=== PATIENT | male | born 1970 | race Caucasian/White ===

== ENCOUNTER 2021-01-24 10:05 | Day surgery (SDC) | payer BC ==
[2021-01-19 15:50] LABS: BASOPHILS # (AUTO) 0.1 X10'3 (0-0.2); BASOPHILS % (AUTO) 0.7 % (0-1); EOSINOPHILS # (AUTO) 0.2 X10'3 (0-0.9); EOSINOPHILS % (AUTO) 2.8 % (0-6); HEMATOCRIT 45.9 % (42.0-52.0); HEMOGLOBIN 15.9 g/dl (14.0-17.9); LYMPHOCYTES # (AUTO) 2.5 X10'3 (1.1-4.8); LYMPHOCYTES % (AUTO) 31.5 % (21-51); MEAN CORPUSCULAR HEMOGLOBIN 29.9 PG (27.0-31.0); MEAN CORPUSCULAR HGB CONC 34.6 g/dL (33.0-36.5); MEAN CORPUSCULAR VOLUME 86.5 FL (78-98); MEAN PLATELET VOLUME 8.7 FL (7.4-10.4); MONOCYTES # (AUTO) 0.6 X10'3 (0-0.9); NEUTROPHILS # (AUTO) 4.7 X10'3 (1.8-7.7); PLATELET COUNT 319 X10'3 (140-440); RED CELL DISTRIBUTION WIDTH 12.6 % (11.5-14.5)
[2021-01-19 16:01] LABS: ALBUMIN 3.8 G/DL (3.4-5.0); ANION GAP 10 (8-16); BLOOD UREA NITROGEN 31 MG/DL (7-18); BUN/CREATININE RATIO 25.8 (5.4-32.0); CALCIUM 9.1 MG/DL (8.5-10.1); CHLORIDE 105 MMOL/L (99-107); GLUCOSE 100 MG/DL (70-104); POTASSIUM 3.7 MMOL/L (3.5-5.1); SODIUM 142 MMOL/L (135-145); TOTAL CARBON DIOXIDE 26.6 MMOL/L (24-32); eGFR 64 ML/MIN
[2021-01-19 16:05] LABS: PARTIAL THROMBOPLASTIN TIME 26 SECONDS (22-32)
[2021-01-24] VITALS (9 sets, daily range): BP systolic 144–167; BP diastolic 78–114
[~2021-01-24] VITALS: Ht 185.4 cm; Wt 110.5 kg
[2021-01-24] MEDS ORDERED: LORazepam 0.5 MG tablet PO PRN (10:20)
[2021-01-24] MEDS ORDERED: normal saline 1,000 ML IV SCH (10:20)
[2021-01-24] MEDS ORDERED: LIDOcaine/PRILOcaine 5gm cream TP ONE (10:20)
[2021-01-24] MEDS ORDERED: diphenhydrAMINE 25mg capsule PO PRN (10:20)
[2021-01-24] MEDS ORDERED: vitamin d3 PO (10:50)
[2021-01-24] MEDS ORDERED: ZINC50TA67 PO (10:50)
[2021-01-24] MEDS ORDERED: PANT-47 PO (10:50)
[2021-01-24] MEDS ORDERED: ASPI-1265 PO (10:50)
[2021-01-24] MEDS ORDERED: AMLO2.5T2 PO (10:50)
[2021-01-24] MEDS ORDERED: OMEG1CAP2 (10:50)
[2021-01-24] MEDS ORDERED: HYDR12.55 PO (10:50)
[2021-01-24] MEDS ORDERED: LOSA25TA96 PO (10:50)
[2021-01-24] MEDS ORDERED: carvedilol PO (10:50)
[2021-01-24] MEDS ORDERED: MULT-1085 PO (10:50)
[2021-01-24] MEDS ORDERED: ROSU10TA2 PO (10:50)
[2021-01-24] MEDS ORDERED: LIDOcaine 1% (10mg/ml)w/preservative injection 20ml MDV ONE (12:15)
[2021-01-24] MEDS ORDERED: verapamil 2.5 mg/ml inj IV ONE (12:15)
[2021-01-24] MEDS ORDERED: fentaNYL/PF 50MCG/1 ML 2ML syringe ONE (12:15)
[2021-01-24] MEDS ORDERED: nitroGLYCERIN-Tridil 50MG/D5W 250 ML IV ONE (12:15)
[2021-01-24] MEDS ORDERED: midazolam 1 mg/ML 2ml injection ONE (12:15)
[2021-01-24] MEDS ORDERED: heparin 1,000unit/ml 10ml vial 10 ML ONE (12:16)
[2021-01-24] MEDS ORDERED: iohexol 350MG/ML 100ml bottle IV ONE ×2 (12:16→13:44)
[2021-01-24] MEDS ORDERED: heparin 1,000 UNITS/NS 500ml 500 ML ONE (13:45)
[2021-01-24] MEDS ORDERED: ticagrelor 90mg tablet ONE (14:30)
[2021-01-24] MEDS ORDERED: ondansetron/PF 4mg/2ml inj IV PRN (15:15)
[2021-01-24] MEDS ORDERED: OXAZEpam 15mg capsule PO PRN (15:15)
[2021-01-24] MEDS ORDERED: proCHLORperazine 10 MG/2 ml inj IV PRN (15:15)
[2021-01-24] MEDS ORDERED: HYDROcodone/acetaminophen 5mg/325mg tablet PO PRN (15:15)
[2021-01-24] MEDS ORDERED: HYDROcodone/acetaminophen 10/325mg tab PO PRN (15:15)
[2021-01-24] MEDS ORDERED: acetaminophen 325mg tablet PO PRN (15:15)
[2021-01-24] MEDS ORDERED: nitroGLYCERIN 0.4mg SUBLingual tab SL PRN (15:15)
== END 2021-01-24 17:20 | disposition home or self-care (01) ==
LOC: SSTAY O 10:05
PROVIDERS: ATTEND Internal Medicine Interventional Cardiology
DX: R94.31 Abnormal electrocardiogram [ECG] [EKG] (principal); R07.89 Other chest pain; I25.10 Atherosclerotic heart disease of native coronary artery without angina pectoris; G47.33 Obstructive sleep apnea (adult) (pediatric); I10 Essential (primary) hypertension; K21.9 Gastro-esophageal reflux disease without esophagitis; E78.49 Other hyperlipidemia; Z79.01 Long term (current) use of anticoagulants; Z79.899 Other long term (current) drug therapy; F17.211 Nicotine dependence, cigarettes, in remission; Z82.49 Family history of ischemic heart disease and other diseases of the circulatory system
CPT/HCPCS: 36415; 80048; 85025; 85610; 85730; 93005; 93458; 99152; 99153; C1725; C1751; C1769; C1874; C1894; C9600; J1644; J2001; J2250; J3010; J7030; Q0163; Q9967; A4620; A5120; J3490